=== PATIENT | female | born 1960 | race Caucasian/White ===

== ENCOUNTER 2017-02-14 16:39 | Emergency (ER) | payer BC ==
[~2017-02-14] VITALS: Ht 167.6 cm; Wt 64.7 kg
[2017-02-14 16:43] VITALS: TEMP 97.5
[2017-02-14] MEDS ORDERED: ZYRTEC 10MG10 MG PO (16:46)
[2017-02-14] MEDS ORDERED: RESTASIS 60VL (16:46)
[2017-02-14 17:32] LABS: BASO % 1.1 % (0.0-2.0); GRAN # 1.1 (1.4-6.5); GRAN % 42.1 % (42.2-75.2); HEMATOCRIT 43.3 % (37.0-47.0); HEMOGLOBIN 14.4 g/dl (12.5-16.0); LYMPH # 1.1 (1.2-3.4); LYMPH % 41.6 % (20.0-51.0); MEAN CELL VOLUME 88 fl (80.0-100.0); MEAN CORPUSCULAR HEMOGLOBIN 29 pg (27.0-31.0); MEAN CORPUSCULAR HGB CONC 33 g/dl (33.0-37.0); MEAN PLATELET VOLUME 11.1 fl (7.4-10.4); MONO # 0.4 (0.1-0.6); MONO % 15.2 % (1.7-9.3); PLATELET COUNT 74 K/mm3 (130-400); RED BLOOD COUNT 4.91 M/mm3 (4.10-5.30); WHITE BLOOD COUNT 2.7 K/mm3 (4.8-10.8)
[2017-02-14 17:35] LABS: ADJUSTED CALCIUM 9.3 mg/dL (8.4-10.2); ALBUMIN 4.4 gm/dL (3.5-5.0); BILIRUBIN,TOTAL 0.5 mg/dL (0.0-1.0); C-REACTIVE PROTEIN 3.5 mg/dL (0.0-0.9); CALCIUM 9.6 mg/dL (8.4-10.2); CREATININE, serum 0.61 mg/dL (0.52-1.25); POTASSIUM 3.9 mmol/L (3.4-5.0); TOTAL PROTEIN 7.4 gm/dL (6.4-8.2)
[2017-02-14 17:48] LABS: INFLUENZA A POSITIVE; INFLUENZA B NEGATIVE
[2017-02-14] MEDS ORDERED: TAMIFLU 75MG75 MG PO (18:24)
[2017-02-14 19:10] VITALS: BP 119/74; PULSE 71
== END 2017-02-14 19:10 | disposition home or self-care (01) ==
LOC: COL.ER 16:39
PROVIDERS: Physician Assistant
DX: J09.X2 Influenza due to identified novel influenza A virus with other respiratory manifestations (principal); Z90.89 Acquired absence of other organs; Z87.891 Personal history of nicotine dependence
CPT/HCPCS: J1200; J1885; J2405; J7030